=== PATIENT | female | born 1970 | race Caucasian/White ===

== ENCOUNTER 2016-08-04 23:17 | Emergency (ER) | payer OTHER ==
[~2016-08-04] VITALS: Ht 160 cm; Wt 61.2 kg
[~2016-08-04 23:17] MED LIST: ATIVAN1 MG PO; COZAAR100 MG PO; HCTZ W/SPIRONOL1 TAB PO; HYDROCODONE BIT1 T11 PO; NADOLOL40 MG PO; PERCOCET 325 MG1 TA5 PO; ZOFRAN4 MG PO; ZOLOFT100 MG PO
[2016-08-04] MEDS ORDERED: LOSARTAN POTASS1 TA6 PO (23:30)
== END 2016-08-05 04:22 | disposition short-term general hospital (02) ==
LOC: ED 23:17
DX: S82.891A Other fracture of right lower leg, initial encounter for closed fracture (principal); S93.04XA Dislocation of right ankle joint, initial encounter; F17.200 Nicotine dependence, unspecified, uncomplicated; Z90.711 Acquired absence of uterus with remaining cervical stump; Z79.899 Other long term (current) drug therapy; Z88.1 Allergy status to other antibiotic agents; W01.0XXA Fall on same level from slipping, tripping and stumbling without subsequent striking against object, initial encounter; Y93.89 Activity, other specified; Y92.89 Other specified places as the place of occurrence of the external cause; Y99.9 Unspecified external cause status

== ENCOUNTER → 2018-01-12 | Outpatient (CLI) | payer OTHER ==
[~2018-01-12] MED LIST changes: +LOSARTAN POTASS1 TA6 PO
== END | disposition home or self-care (01) ==
LOC: RAD 13:34
DX: M47.892 Other spondylosis, cervical region (principal); M43.12 Spondylolisthesis, cervical region; M40.40 Postural lordosis, site unspecified

== ENCOUNTER 2021-04-28 11:35 | Emergency (ER) | payer OTHER ==
[~2021-04-28] VITALS: Ht 160 cm; Wt 65.8 kg
[2021-04-28] MEDS ORDERED: CITALOPRAM40 MG PO (11:47)
[2021-04-28 13:17] LABS: BASO # 0.1 10*3/uL (0.0-0.1); BASO % 0.8 % (0.0-1.0); EOS # 0.1 10*3/uL (0.0-0.4); EOS % 0.3 % (1.0-4.0); HEMATOCRIT 41.5 % (37.0-47.0); LYMPH # 1.9 10*3/uL (1.3-4.4); LYMPH % 12.4 % (27.0-41.0); MEAN CELL VOLUME 92.4 fl (81.0-99.0); MEAN CORPUSCULAR HGB 31.2 pg (27.0-31.0); MEAN CORPUSCULAR HGB CONC 33.7 g/dl (33.0-37.0); MEAN PLATELET VOLUME 8.6 fl (9.6-12.3); MONO # 0.9 10*3/uL (0.1-1.0); MONO % 5.8 % (3.0-9.0); NEUT # 12.3 10*3/uL (2.3-7.9); NEUT % 80.1 % (47.0-73.0); PLATELET COUNT AUTOMATED 364 10*3/uL (130-400); RED BLOOD COUNT 4.49 10*6/uL (4.10-5.10); WHITE BLOOD COUNT 15.4 10*3/uL (4.8-10.8)
[2021-04-28 13:28] LABS: ACT PARTIAL THROMBO TIME 25.1 SECONDS (20.0-32.1)
[2021-04-28 13:35] LABS: ALKALINE PHOSPHATASE 75 U/L (45-117); BUN 17 mg/dl (7-24); CHLORIDE 107 mmol/L (98-107); CREATININE 0.72 mg/dL (0.55-1.02); LIPASE 252 U/L (73-393); POTASSIUM 3.7 mmol/L (3.5-5.1); SGOT/AST 20 IU/L (3-35); SGPT/ALT 25 U/L (12-78); SODIUM 138 mmol/L (136-145); TOTAL PROTEIN 7.2 gm/dL (6.4-8.2)
== END 2021-04-28 13:55 | disposition short-term general hospital (02) ==
LOC: ED 11:35
PROVIDERS: Physician Assistant
DX: G43.909 Migraine, unspecified, not intractable, without status migrainosus (principal); I10 Essential (primary) hypertension; F17.200 Nicotine dependence, unspecified, uncomplicated; Z88.1 Allergy status to other antibiotic agents; Z79.899 Other long term (current) drug therapy; Z90.711 Acquired absence of uterus with remaining cervical stump

== ENCOUNTER 2023-03-06 21:09 | Emergency (ER) | payer MEDICAID ==
[~2023-03-06] VITALS: Ht 160 cm; Wt 61.2 kg
[~2023-03-06 21:09] MED LIST changes: +CITALOPRAM40 MG PO
== END 2023-03-07 00:48 | disposition home or self-care (01) ==
LOC: ED 21:09
DX: I16.0 Hypertensive urgency (principal); Z88.1 Allergy status to other antibiotic agents; Z79.899 Other long term (current) drug therapy; Z90.711 Acquired absence of uterus with remaining cervical stump